=== PATIENT | female | born 1970 ===

== ENCOUNTER 2018-06-12 18:26 | Emergency (ER) | payer OTHER ==
[2018-06-12 18:30] VITALS: TEMP 98.8
--- NOTE | 2018-06-12 19:43 | C.PDOC ---
History Of Present Illness 48 y/o F c no PMHx p/w HTN today. Patient went to clinic today for regular check up due to her "age." She was found to be hypertensive 250/120 or so in clinic with tachycardia. She was also found to have an abnormal EKG. She was started on a number of HTN medications and instructed to come to ED. She was told to go back to clinic on Thursday for further evaluation and treatment as well. She states she last took her blood pressure in the [place] 8 months ago and it was 120/80. She denies any headache, chest pain, back pain, dyspnea, abdominal pain, nausea, vomiting. Reports normal urination. 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 Constitutional: Negative for: Fever Cardiovascular: Negative for: Chest Pain Respiratory: Negative for: Shortness of Breath Physical Exam - Physical Exam Additional Physical Exam Comments: Constitutional: No acute distress. Head: Normocephalic. Atraumatic. Eyes: PERRL. ENT: Moist mucous membranes. Neck: Supple. Cardiovascular: Regular rate. Radial pulse 2+ bilaterally. Chest: No tenderness. Respiratory: Clear to auscultation bilaterally. GI: Soft. Nontender. Nondistended. Back: No CVA tenderness. Musculoskeletal: No tenderness or swelling of extremities. Skin: No rash. Neurologic: Alert, no focal deficit. ED Course And Treatment - Laboratory Results Result Diagrams: 06/12/18 19:43 06/12/18 19:43 O2 Sat by Pulse Oximetry: 97 Medical Decision Making Medical Decision Making: Labs, CXR unremarkable. EKG unchanged. Discharged home, f/u clinic, instructed to return to ED for any chest pain, dyspnea, vomiting, headache, urinary changes. Disposition - Disposition Disposition: HOME/ ROUTINE Disposition Time: 21:33 Condition: STABLE Instructions: High Blood Pressure in Adults Forms: [facility] (Tajik), Gen Discharge Inst [place] Print Language: PORTUGUESE - Clinical Impression Clinical Impression: Asymptomatic hypertension
[2018-06-12 19:46] LABS: BASO # 0.1 K/uL (0.0-0.2); BASO % 0.7 % (0.0-2.0); EOS # 0.1 K/uL (0.0-0.7); EOS % 0.6 % (0.0-4.0); LYMPH % 9.1 % (20.0-40.0); MEAN CELL VOLUME 91.8 fL (81.0-99.0); MEAN CORPUSCULAR HEMOGLOBIN 30.7 pg (27.0-31.0); MEAN CORPUSCULAR HGB CONC 33.5 g/dL (33.0-37.0); MEAN PLATELET VOLUME 10.4 fL (7.2-11.7); MONO # 0.3 K/uL (0.0-0.8); MONO % 2.9 % (0.0-10.0); NEUT % 86.7 % (50.0-75.0); NRBC % 0.1 % (0.0-2.0); PLATELET COUNT 281 K/uL (130-400); RED CELL DISTRIBUTION WIDTH 13.1 % (11.5-14.5); WHITE BLOOD COUNT 11.5 K/uL (4.8-10.8)
[2018-06-12 19:59] LABS: ALB/GLOB RATIO 1.2 (1.0-2.1); ALBUMIN 4.7 g/dL (3.5-5.0); ALT/SGPT 21 U/L (9-52); AST/SGOT 29 U/L (14-36); BLOOD UREA NITROGEN 8 mg/dL (7-17); CALCIUM 9.8 mg/dl (8.6-10.4); GFR NON-AFRICAN AMERICAN > 60
[2018-06-12 20:07] LABS: CK-MB 0.83 ng/mL (0.0-3.38)
[2018-06-12 20:15] LABS: BANDS 3 % (0-2); EOSINOPHIL 2 % (0-4); LYMPHOCYTE 8 % (20-40); MONOCYTE 2 % (0-10); NEUTROPHIL 84 % (50-75); PLATELET ESTIMATE NORMAL (NORMAL); REACTIVE LYMPHOCYTES 1 % (0-0); TOTAL CELLS COUNTED 100
[2018-06-12 21:46] VITALS: BP 178/93; PULSE 89; RESP 17; O2SAT 98
--- NOTE | 2018-06-13 14:56 | RAD ---
Date of service: 06/12/2018 HISTORY: htn COMPARISON: No prior. TECHNIQUE: Chest PA and lateral FINDINGS: LUNGS: No active pulmonary disease. PLEURA: No significant pleural effusion identified. No pneumothorax apparent. CARDIOVASCULAR: No aortic atherosclerotic calcification present. Normal cardiac size. No pulmonary vascular congestion. OSSEOUS STRUCTURES: No significant abnormalities. VISUALIZED UPPER ABDOMEN: Normal. OTHER FINDINGS: None. IMPRESSION: No active disease.
--- NOTE | 2018-06-15 11:54 | CARD ---
APPROVED REPORT Date of service: 06/12/2018 EKG Measurement Heart [id number] <Conclusion> Normal sinus rhythm Possible Left atrial enlargement Borderline ECG
== END 2018-06-12 21:46 | disposition home or self-care (01) ==
LOC: C.ER 18:26
DX: I10 Essential (primary) hypertension (principal)

== ENCOUNTER 2018-06-14 10:35 | Outpatient (CLI) | payer OTHER | END 2018-06-14 10:36 | disposition home or self-care (01) | LOC: C.LAB 10:35 | DX: Z12.11 Encounter for screening for malignant neoplasm of colon (principal); I10 Essential (primary) hypertension ==

== ENCOUNTER 2018-06-30 21:30 | Emergency (ER) | payer MEDICAID, OTHER | END 2018-07-01 00:27 | disposition home or self-care (01) | LOC: C.ER 07-01 00:27 ==